=== PATIENT | female | born 1955 | race Two or more races ===

== ENCOUNTER 2018-07-19 09:24 | Outpatient (CLI) | payer OTHER | END 2018-07-19 10:46 | disposition home or self-care (01) | LOC: MAMO-SONO 09:24 | DX: N60.11 Diffuse cystic mastopathy of right breast (principal); N60.12 Diffuse cystic mastopathy of left breast; Z12.31 Encounter for screening mammogram for malignant neoplasm of breast ==

== ENCOUNTER 2020-09-03 10:10 | Outpatient (CLI) | payer OTHER | END 2020-09-03 10:29 | disposition home or self-care (01) | LOC: MAMO-SONO 10:10 | PROVIDERS: ATTEND Specialist | DX: N60.11 Diffuse cystic mastopathy of right breast (principal); N60.12 Diffuse cystic mastopathy of left breast ==

== ENCOUNTER 2020-10-12 06:31 | Day surgery (SDC) | payer OTHER ==
[~2020-10-12 06:31] MED LIST: CLONAZEPAM0.5 MG PO; CRESTOR10 MG PO; SYNTHROID88 MCG PO
== END 2020-10-12 18:35 | disposition home or self-care (01) ==
LOC: CIR.AMB 06:31
PROVIDERS: ATTEND Surgery
DX: D05.12 Intraductal carcinoma in situ of left breast (principal); Z90.12 Acquired absence of left breast and nipple; Z20.822 Contact with and (suspected) exposure to COVID-19